=== PATIENT | male | born 1945 | race Caucasian/White ===

== ENCOUNTER 2020-05-10 19:38 | Emergency (ER) | payer MEDICARE ==
[~2020-05-10] VITALS: Ht 182.9 cm; Wt 68.0 kg
[~2020-05-10 19:38] MED LIST: FINA5 PO; Fosamax70 MG PO; OMEP20ER PO
[2020-05-10 20:32] LABS: BASOPHILS ABSOLUTE AUTO 0.03 K/mm3 (0.00-0.23); BASOPHILS PERCENT AUTO 1 % (0-2); EOSINOPHILS PERCENT AUTO 0 % (0-6); Hematocrit 43.5 % (37.0-53.0); Hemoglobin 14.8 g/dL (13.5-17.5); IMMATURE GRAN ABSOLUTE AUTO 0.01 K/mm3 (0.00-0.10); IMMATURE GRAN PERCENT AUTO 0 % (0-1); LYMPHOCYTES ABSOLUTE AUTO 0.73 K/mm3 (0.84-5.20); LYMPHOCYTES PERCENT AUTO 11 % (21-46); MONOCYTES ABSOLUTE AUTO 0.31 K/mm3 (0.16-1.47); MONOCYTES PERCENT AUTO 5 % (4-13); Mean Corpuscular HGB 32.1 pg (26.0-34.0); Mean Corpuscular Volume 94 fL (80-100); Mean Platelet Volume 9.8 fL (9.1-12.4); NEUTROPHILS ABSOLUTE AUTO 5.43 K/mm3 (1.96-9.15); NEUTROPHILS PERCENT AUTO 83 % (41-73); Platelet Count 278 K/mm3 (150-400); RDW Coefficient Variation 12.1 % (11.7-14.2); Red Blood Cell Count 4.61 M/mm3 (4.30-5.90); White Blood Cell Count 6.51 K/mm3 (4.00-11.30)
[2020-05-10 20:46] LABS: International Normalized Ratio 1.01; Prothrombin Time Results 10.8 Sec (9.7-11.5)
[2020-05-10 20:55] LABS: Alanine Aminotransfer (ALT/SGP 24 U/L (12-78); Albumin, Blood 3.9 g/dL (3.4-5.0); Albumin/Globulin Ratio 1.3 (0.8-1.8); Alk Phos 57 U/L (50-136); Anion Gap 5 mmol/L (6-16); Aspartate Aminotrans (AST/SGOT 19 U/L (12-37); Bilirubin, Total 0.4 mg/dL (0.1-1.0); Blood Urea Nitrogen 21 mg/dL (8-24); CO2, Blood 26 mmol/L (21-32); Calcium, Blood 9.7 mg/dL (8.5-10.1); Chloride, Blood 112 mmol/L (98-108); Creatinine, Blood 0.81 mg/dL (0.60-1.20); Glomerular Filtration Rate >60 (60-); Glucose, Blood 135 mg/dL (70-99); Potassium, Blood 4.2 mmol/L (3.5-5.5); Sodium, Blood 143 mmol/L (136-145); Total Protein, Blood 6.9 g/dL (6.4-8.2)
== END 2020-05-10 22:42 | disposition home or self-care (01) ==
LOC: ER 19:38
PROVIDERS: Physician Assistant
DX: G45.4 Transient global amnesia (principal)
CPT/HCPCS: 70450; 80053; 85025; 85610; 93005; 93010; 99285-25

== ENCOUNTER 2020-07-17 14:47 | Emergency (ER) | payer MEDICARE ==
[~2020-07-17] VITALS: Ht 185.4 cm; Wt 72.6 kg
[2020-07-17 15:04] LABS: Source, Urine Clean Catch
[2020-07-17 15:09] LABS: Appearance, Urine Clear (Clear); Bilirubin, Urine Neg (Neg); Blood, Urine 2+ (Neg); Color, Urine Yellow (P-Yellow); Glucose Qualitative, Urine Neg (Neg); Ketones, Urine Neg (Neg); Leukocyte Esterase, Urine 1+ (Neg); Nitrite, Urine Neg (Neg); Protein, Urine Neg (Neg); Specific Gravity, Urine 1.015 (1.003-1.022); Urobilinogen, Urine NORM (Normal)
[2020-07-17 15:18] LABS: Bacteria Rare /hpf; Squamous Epithelial Cells Not Seen /hpf (Few); White Blood Cells, Urine 0-2 /hpf (0-5)
[2020-07-17] MEDS ORDERED: Macrobid 100 M100 MG PO (15:37)
== END 2020-07-17 15:46 | disposition home or self-care (01) ==
LOC: ER 14:47
PROVIDERS: Emergency Medicine
DX: N39.0 Urinary tract infection, site not specified (principal)
CPT/HCPCS: 81001; 87086; 99283

== ENCOUNTER 2020-08-19 11:53 | Emergency (ER) | payer MEDICARE ==
[~2020-08-19] VITALS: Ht 182.9 cm; Wt 72.6 kg
[~2020-08-19 11:53] MED LIST changes: +Macrobid 100 M100 MG PO
[2020-08-19 12:14] LABS: Source, Urine Clean Catch
[2020-08-19 12:20] LABS: Bilirubin, Urine Neg (Neg); Blood, Urine 3+ (Neg); Glucose Qualitative, Urine Neg (Neg); Ketones, Urine Neg (Neg); Leukocyte Esterase, Urine 3+ (Neg); Nitrite, Urine Neg (Neg); Protein, Urine Neg (Neg); Urobilinogen, Urine NORM (Normal); pH, Urine 6.5 (5.0-8.0)
[2020-08-19 12:39] LABS: Appearance, Urine Clear (Clear); Color, Urine Yellow (P-Yellow)
[2020-08-19 12:41] LABS: Bacteria Rare /hpf; Red Blood Cells, Urine 0-2 /hpf (0-2); Squamous Epithelial Cells Not Seen /hpf (Few)
[2020-08-19] MEDS ORDERED: CEPH500 PO (13:36)
== END 2020-08-19 13:50 | disposition home or self-care (01) ==
LOC: ER 11:53
PROVIDERS: Emergency Medicine
DX: N39.0 Urinary tract infection, site not specified (principal)
CPT/HCPCS: 81001; 87086; 99284

== ENCOUNTER → 2020-11-16 | Outpatient (CLI) | payer MEDICARE ==
[~2020-11-16] MED LIST changes: +CEPH500 PO
== END | disposition home or self-care (01) ==
LOC: PLD 15:00 → LAB SHORT 15:00
DX: N30.01 Acute cystitis with hematuria (principal)
CPT/HCPCS: 87086

== ENCOUNTER → 2021-08-05 | Outpatient (CLI) | payer MEDICARE ==
[2021-08-05 16:14] LABS: Source, Urine Clean Catch
[2021-08-05 17:44] LABS: Appearance, Urine Hazy (Clear); Bilirubin, Urine Neg (Neg); Blood, Urine 1+ (Neg); Color, Urine Yellow (P-Yellow); Glucose Qualitative, Urine Neg (Neg); Ketones, Urine 1+ (Neg); Leukocyte Esterase, Urine Neg (Neg); Nitrite, Urine Neg (Neg); Protein, Urine 1+ (Neg); Specific Gravity, Urine 1.025 (1.003-1.022); Urobilinogen, Urine NORM (Normal)
[2021-08-05 18:56] LABS: Bacteria Rare /hpf; Red Blood Cells, Urine 0-2 /hpf (0-2); Squamous Epithelial Cells Rare /hpf (Few); White Blood Cells, Urine 0-2 /hpf (0-5)
== END | disposition home or self-care (01) ==
LOC: LAB 15:57 → LAB SHORT 15:57
PROVIDERS: Nurse Practitioner
DX: N39.0 Urinary tract infection, site not specified (principal)
CPT/HCPCS: 81001; 87086

== ENCOUNTER 2021-08-23 15:39 | Emergency (ER) | payer MEDICARE ==
[~2021-08-23] VITALS: Ht 175.3 cm; Wt 74.8 kg
[2021-08-23 16:41] LABS: Hematocrit 45.1 % (37.0-53.0); Hemoglobin 15.2 g/dL (13.5-17.5); MONOCYTES ABSOLUTE AUTO 0.29 K/mm3 (0.16-1.47); MONOCYTES PERCENT AUTO 4 % (4-13); Mean Corpuscular HGB 32.6 pg (26.0-34.0); Mean Corpuscular HGB Conc 33.7 g/dL (31.5-36.5); Mean Corpuscular Volume 97 fL (80-100); Platelet Count 279 K/mm3 (150-400); RDW Coefficient Variation 12.5 % (11.7-14.2); RDW Standard Deviation 44.2 fL (35.1-46.3); Red Blood Cell Count 4.66 M/mm3 (4.30-5.90); White Blood Cell Count 7.03 K/mm3 (4.00-11.30)
[2021-08-23 17:00] LABS: IMMATURE GRAN ABSOLUTE AUTO 0.01 K/mm3 (0.00-0.10); IMMATURE GRAN PERCENT AUTO 0 % (0-1)
[2021-08-23 17:10] LABS: BASOPHILS ABSOLUTE AUTO 0.03 K/mm3 (0.00-0.23); BASOPHILS PERCENT AUTO 0 % (0-2); EOSINOPHILS PERCENT AUTO 0 % (0-6); LYMPHOCYTES ABSOLUTE AUTO 0.75 K/mm3 (0.84-5.20); LYMPHOCYTES PERCENT AUTO 11 % (21-46); NEUTROPHILS ABSOLUTE AUTO 5.89 K/mm3 (1.96-9.15); NEUTROPHILS PERCENT AUTO 85 % (41-73)
[2021-08-23 17:15] LABS: Alanine Aminotransfer (ALT/SGP 25 U/L (12-78); Albumin, Blood 3.7 g/dL (3.4-5.0); Albumin/Globulin Ratio 1.1 (0.8-1.8); Alk Phos 53 U/L (50-136); Anion Gap 4 mmol/L (6-16); Aspartate Aminotrans (AST/SGOT 15 U/L (12-37); Bilirubin, Total 0.5 mg/dL (0.1-1.0); Blood Urea Nitrogen 13 mg/dL (8-24); Bun/Creatinine Ratio 16.8 (12.0-20.0); CO2, Blood 26 mmol/L (21-32); Chloride, Blood 109 mmol/L (98-108); Creatinine, Blood 0.78 mg/dL (0.60-1.20); Globulin, Blood 3.4 g/dL (2.2-4.0); Glomerular Filtration Rate >60 (60-); Glucose, Blood 108 mg/dL (70-99); Sodium, Blood 139 mmol/L (136-145); Total Protein, Blood 7.1 g/dL (6.4-8.2); Troponin I <0.015 ng/mL (0.000-0.040)
[2021-08-23] MEDS ORDERED: DOXE75C PO (18:19)
[2021-08-23 19:12] LABS: Source, Urine Clean Catch
[2021-08-23 19:45] LABS: Appearance, Urine Cloudy (Clear); Bilirubin, Urine Neg (Neg); Blood, Urine Neg (Neg); Color, Urine Yellow (P-Yellow); Glucose Qualitative, Urine Neg (Neg); Ketones, Urine 2+ (Neg); Leukocyte Esterase, Urine Neg (Neg); Nitrite, Urine Neg (Neg); Protein, Urine 2+ (Neg); Specific Gravity, Urine 1.025 (1.003-1.022); Urobilinogen, Urine NORM (Normal)
[2021-08-23 20:11] LABS: Bacteria Mod /hpf; Calcium Oxalate Crystals Many /hpf; Red Blood Cells, Urine 0-2 /hpf (0-2); Squamous Epithelial Cells Few /hpf (Few); White Blood Cells, Urine 0-2 /hpf (0-5)
[2021-08-23] MEDS ORDERED: ALPR.25 PO (22:01)
[2021-08-23] MEDS ORDERED: CEPH500 PO (22:01)
== END 2021-08-23 22:17 | disposition home or self-care (01) ==
LOC: ER 15:39
PROVIDERS: Emergency Medicine; Physician Assistant
DX: N20.0 Calculus of kidney (principal); R41.82 Altered mental status, unspecified
CPT/HCPCS: 36415; 70450; 74176; 80053; 81001; 84484; 85025; 93005; 93010; 96365; 99285-25; J0696

== ENCOUNTER → 2021-08-24 | Outpatient (CLI) | payer MEDICARE ==
[~2021-08-24] MED LIST changes: +ALPR.25 PO; +DOXE75C PO
[2021-08-24 15:21] LABS: Source, Urine Clean Catch
[2021-08-24 17:37] LABS: Appearance, Urine Hazy (Clear); Bilirubin, Urine Neg (Neg); Color, Urine Yellow (P-Yellow); Glucose Qualitative, Urine Neg (Neg); Ketones, Urine Neg (Neg); Leukocyte Esterase, Urine Neg (Neg); Nitrite, Urine Neg (Neg); Protein, Urine 2+ (Neg)
[2021-08-24 18:08] LABS: Blood, Urine 2+ (Neg); Specific Gravity, Urine 1.025 (1.003-1.022); Urobilinogen, Urine 1+ (Normal)
[2021-08-24 18:27] LABS: White Blood Cells, Urine 0-2 /hpf (0-5)
[2021-08-24 18:29] LABS: Bacteria Mod /hpf; Squamous Epithelial Cells Few /hpf (Few)
[2021-08-24 18:30] LABS: Calcium Oxalate Crystals Many /hpf; Mucus Light (0-Heavy)
== END | disposition home or self-care (01) ==
LOC: LAB SHORT 15:19 → LAB 15:19 → EDSTATUS 08-24 15:10 → LAB FUT 08-24 15:10
PROVIDERS: Nurse Practitioner
DX: N39.0 Urinary tract infection, site not specified (principal)
CPT/HCPCS: 81001; 87086

== ENCOUNTER 2022-03-08 11:32 | Emergency (ER) | payer MEDICARE ==
[~2022-03-08] VITALS: Ht 185.4 cm; Wt 72.6 kg
[~2022-03-08 11:32] MED LIST changes: +LEVE500 PO
[2022-03-08] MEDS ORDERED: LEVE500 PO (13:14)
[2022-03-08] MEDS ORDERED: FLUC200 PO (13:14)
[2022-03-08] MEDS ORDERED: Norco 5-325 Ta1 EACH PO (13:19)
[2022-03-08] MEDS ORDERED: CYCL10 PO (13:19)
[2022-03-08] MEDS ORDERED: IBUP600 PO (13:19)
== END 2022-03-08 13:24 | disposition home or self-care (01) ==
LOC: ER 11:32
DX: M54.32 Sciatica, left side (principal)
CPT/HCPCS: 93971; 99283-25

== ENCOUNTER 2022-03-14 15:16 | Emergency (ER) | payer MEDICARE ==
[~2022-03-14] VITALS: Ht 182.9 cm; Wt 72.6 kg
[~2022-03-14 15:16] MED LIST changes: +CYCL10 PO; +FLUC200 PO; +IBUP600 PO; +Norco 5-325 Ta1 EACH PO
[2022-03-14] MEDS ORDERED: METPRE4DP PO (15:35)
[2022-03-14] MEDS ORDERED: Norco 5-325 Ta1 EACH PO (15:35)
== END 2022-03-14 15:36 | disposition home or self-care (01) ==
LOC: ER 15:16
DX: Z76.0 Encounter for issue of repeat prescription (principal); M54.32 Sciatica, left side; Z79.899 Other long term (current) drug therapy
CPT/HCPCS: 99281

== ENCOUNTER 2022-03-31 07:20 | Emergency (ER) | payer MEDICARE ==
[~2022-03-31] VITALS: Ht 185.4 cm; Wt 66.2 kg
[~2022-03-31 07:20] MED LIST changes: +METPRE4DP PO
[2022-03-31 09:03] LABS: BASOPHILS ABSOLUTE AUTO 0.04 K/mm3 (0.00-0.23); BASOPHILS PERCENT AUTO 1 % (0-2); EOSINOPHILS ABSOLUTE AUTO 0.06 K/mm3 (0.00-0.68); EOSINOPHILS PERCENT AUTO 1 % (0-6); Hematocrit 44.5 % (37.0-53.0); Hemoglobin 15.7 g/dL (13.5-17.5); IMMATURE GRAN ABSOLUTE AUTO 0.01 K/mm3 (0.00-0.10); IMMATURE GRAN PERCENT AUTO 0 % (0-1); LYMPHOCYTES ABSOLUTE AUTO 2.44 K/mm3 (0.84-5.20); LYMPHOCYTES PERCENT AUTO 28 % (21-46); MONOCYTES ABSOLUTE AUTO 0.79 K/mm3 (0.16-1.47); MONOCYTES PERCENT AUTO 9 % (4-13); Mean Corpuscular HGB Conc 35.3 g/dL (31.5-36.5); Mean Corpuscular Volume 94 fL (80-100); Mean Platelet Volume 9.9 fL (9.1-12.4); NEUTROPHILS ABSOLUTE AUTO 5.29 K/mm3 (1.96-9.15); NEUTROPHILS PERCENT AUTO 61 % (41-73); Platelet Count 236 K/mm3 (150-400); RDW Coefficient Variation 11.9 % (11.7-14.2); RDW Standard Deviation 41.4 fL (35.1-46.3); Red Blood Cell Count 4.76 M/mm3 (4.30-5.90); White Blood Cell Count 8.63 K/mm3 (4.00-11.30)
[2022-03-31 09:24] LABS: Bun/Creatinine Ratio 19.6 (12.0-20.0); Calcium, Blood 9.5 mg/dL (8.5-10.1); Creatinine, Blood 0.72 mg/dL (0.60-1.20); Potassium, Blood 4.1 mmol/L (3.5-5.5)
[2022-03-31 15:11] LABS: Source, Urine Clean Catch
[2022-03-31 15:24] LABS: Appearance, Urine Clear (Clear); Bilirubin, Urine Neg (Neg); Blood, Urine 1+ (Neg); Color, Urine Amber (P-Yellow); Glucose Qualitative, Urine Neg (Neg); Ketones, Urine 3+ (Neg); Leukocyte Esterase, Urine Neg (Neg); Nitrite, Urine Neg (Neg); Protein, Urine 1+ (Neg); Specific Gravity, Urine 1.025 (1.003-1.022); Urobilinogen, Urine 1+ (Normal)
[2022-03-31 15:35] LABS: Bacteria Few /hpf; Calcium Oxalate Crystals Mod /hpf; Hyaline Casts 0-2 /lpf (0-2); Mucus Light (0-Heavy); Squamous Epithelial Cells Rare /hpf (Few); White Blood Cells, Urine 0-2 /hpf (0-5)
[2022-03-31] MEDS ORDERED: HYDACE10B PO (18:48)
[2022-03-31] MEDS ORDERED: Norco 5-325 Ta1 EACH PO (19:34)
== END 2022-03-31 15:44 | disposition home or self-care (01) ==
LOC: ER 07:20
PROVIDERS: Emergency Medicine
DX: M51.16 Intervertebral disc disorders with radiculopathy, lumbar region (principal); M47.26 Other spondylosis with radiculopathy, lumbar region; M48.061 Spinal stenosis, lumbar region without neurogenic claudication; F03.90 Unspecified dementia, unspecified severity, without behavioral disturbance, psychotic disturbance, mood disturbance, and anxiety; Z79.899 Other long term (current) drug therapy
CPT/HCPCS: 36415; 72148; 80048; 81001; 85025; A9270; J1100; J2405; J3010

== ENCOUNTER → 2023-01-16 | Outpatient (CLI) | payer MEDICARE ==
[~2023-01-16] MED LIST changes: +HYDACE10B PO
[2023-01-16 18:56] LABS: BASOPHILS ABSOLUTE AUTO 0.05 K/mm3 (0.00-0.23); BASOPHILS PERCENT AUTO 1 % (0-2); EOSINOPHILS ABSOLUTE AUTO 0.03 K/mm3 (0.00-0.68); EOSINOPHILS PERCENT AUTO 1 % (0-6); Hematocrit 43.2 % (37.0-53.0); Hemoglobin 14.8 g/dL (13.5-17.5); IMMATURE GRAN ABSOLUTE AUTO 0.01 K/mm3 (0.00-0.10); IMMATURE GRAN PERCENT AUTO 0 % (0-1); LYMPHOCYTES PERCENT AUTO 34 % (21-46); MONOCYTES ABSOLUTE AUTO 0.46 K/mm3 (0.16-1.47); MONOCYTES PERCENT AUTO 10 % (4-13); Mean Corpuscular HGB Conc 34.3 g/dL (31.5-36.5); Mean Corpuscular Volume 93 fL (80-100); Mean Platelet Volume 10.1 fL (9.1-12.4); NEUTROPHILS ABSOLUTE AUTO 2.55 K/mm3 (1.96-9.15); NEUTROPHILS PERCENT AUTO 54 % (41-73); Platelet Count 305 K/mm3 (150-400); RDW Coefficient Variation 12.6 % (11.7-14.2); RDW Standard Deviation 43.6 fL (35.1-46.3); Red Blood Cell Count 4.63 M/mm3 (4.30-5.90)
[2023-01-16 20:20] LABS: Albumin/Globulin Ratio 1.3 (0.8-1.8); Bilirubin, Total 0.5 mg/dL (0.1-1.0); Bun/Creatinine Ratio 21.5 (12.0-20.0); Calcium, Blood 9.8 mg/dL (8.5-10.1); Creatinine, Blood 0.65 mg/dL (0.60-1.20); Potassium, Blood 4.3 mmol/L (3.5-5.5); Thyroid Stimulating Hormone 2.42 uIU/mL (0.360-4.800)
== END | disposition home or self-care (01) ==
LOC: LAB 12:00 → LAB SHORT 12:00
PROVIDERS: Family Medicine
DX: R41.89 Other symptoms and signs involving cognitive functions and awareness (principal); G30.9 Alzheimer's disease, unspecified; R41.3 Other amnesia; Z79.899 Other long term (current) drug therapy
CPT/HCPCS: 80053; 82607; 82746; 84443; 85025; 85651; 86592

== ENCOUNTER → 2023-02-06 | Outpatient (CLI) | payer MEDICARE ==
[2023-02-06 12:01] LABS: BASOPHILS ABSOLUTE AUTO 0.06 K/mm3 (0.00-0.23); BASOPHILS PERCENT AUTO 1 % (0-2); EOSINOPHILS ABSOLUTE AUTO 0.07 K/mm3 (0.00-0.68); EOSINOPHILS PERCENT AUTO 2 % (0-6); Hematocrit 43.4 % (37.0-53.0); Hemoglobin 14.9 g/dL (13.5-17.5); IMMATURE GRAN ABSOLUTE AUTO 0.01 K/mm3 (0.00-0.10); IMMATURE GRAN PERCENT AUTO 0 % (0-1); LYMPHOCYTES ABSOLUTE AUTO 1.76 K/mm3 (0.84-5.20); LYMPHOCYTES PERCENT AUTO 38 % (21-46); MONOCYTES ABSOLUTE AUTO 0.42 K/mm3 (0.16-1.47); MONOCYTES PERCENT AUTO 9 % (4-13); Mean Corpuscular HGB 32.6 pg (26.0-34.0); Mean Corpuscular HGB Conc 34.3 g/dL (31.5-36.5); Mean Corpuscular Volume 95 fL (80-100); Mean Platelet Volume 9.8 fL (9.1-12.4); NEUTROPHILS ABSOLUTE AUTO 2.31 K/mm3 (1.96-9.15); NEUTROPHILS PERCENT AUTO 50 % (41-73); Platelet Count 276 K/mm3 (150-400); RDW Coefficient Variation 12.7 % (11.7-14.2); RDW Standard Deviation 44.4 fL (35.1-46.3); Red Blood Cell Count 4.57 M/mm3 (4.30-5.90); White Blood Cell Count 4.63 K/mm3 (4.00-11.30)
[2023-02-06 12:25] LABS: Albumin, Blood 3.8 g/dL (3.4-5.0); Albumin/Globulin Ratio 1.4 (0.8-1.8); Bilirubin, Total 0.6 mg/dL (0.1-1.0); Bun/Creatinine Ratio 22.1 (12.0-20.0); Calcium, Blood 9.7 mg/dL (8.5-10.1); Creatinine, Blood 0.72 mg/dL (0.60-1.20); Globulin, Blood 2.7 g/dL (2.2-4.0); Potassium, Blood 3.8 mmol/L (3.5-5.5); Thyroid Stimulating Hormone 3.52 uIU/mL (0.360-4.800); Total Protein, Blood 6.5 g/dL (6.4-8.2)
[2023-02-08 15:07] LABS: A/G RATIO 1.6 (0.7-1.7); ALBUMIN 3.8 g/dL (2.9-4.4); ALPHA-1-GLOBULIN 0.2 g/dL (0.0-0.4); ALPHA-2-GLOBULIN 0.6 g/dL (0.4-1.0); BETA GLOBULIN 0.8 g/dL (0.7-1.3); GAMMA GLOBULIN 0.8 g/dL (0.4-1.8); GLOBULIN, TOTAL 2.4 g/dL (2.2-3.9); M-SPIKE Not Observed g/dL (Not Observed); PROTEIN, TOTAL, SERUM 6.2 g/dL (6.0-8.5)
== END | disposition home or self-care (01) ==
LOC: LAB SHORT 07:39 → LAB FUT 05-04 14:45
PROVIDERS: Psychiatry & Neurology Neurology
DX: C61 Malignant neoplasm of prostate (principal); N20.0 Calculus of kidney; G40.201 Localization-related (focal) (partial) symptomatic epilepsy and epileptic syndromes with complex partial seizures, not intractable, with status epilepticus; G62.9 Polyneuropathy, unspecified; E53.1 Pyridoxine deficiency; E53.8 Deficiency of other specified B group vitamins; R41.3 Other amnesia; R41.89 Other symptoms and signs involving cognitive functions and awareness
CPT/HCPCS: 36415; 80053; 82607; 83036; 84443; 85025; 85651; 86592

== ENCOUNTER 2023-05-12 13:01 | Emergency (ER) | payer MEDICARE ==
[~2023-05-12] VITALS: Ht 185.4 cm; Wt 61.2 kg
[2023-05-12 14:38] LABS: BASOPHILS ABSOLUTE AUTO 0.04 K/mm3 (0.00-0.23); BASOPHILS PERCENT AUTO 1 % (0-2); EOSINOPHILS ABSOLUTE AUTO 0.08 K/mm3 (0.00-0.68); EOSINOPHILS PERCENT AUTO 1 % (0-6); Hematocrit 42.1 % (37.0-53.0); Hemoglobin 14.6 g/dL (13.5-17.5); IMMATURE GRAN ABSOLUTE AUTO 0.01 K/mm3 (0.00-0.10); IMMATURE GRAN PERCENT AUTO 0 % (0-1); LYMPHOCYTES ABSOLUTE AUTO 1.42 K/mm3 (0.84-5.20); LYMPHOCYTES PERCENT AUTO 24 % (21-46); MONOCYTES ABSOLUTE AUTO 0.55 K/mm3 (0.16-1.47); MONOCYTES PERCENT AUTO 9 % (4-13); Mean Corpuscular HGB 32.6 pg (26.0-34.0); Mean Corpuscular HGB Conc 34.7 g/dL (31.5-36.5); Mean Corpuscular Volume 94 fL (80-100); Mean Platelet Volume 10.3 fL (9.1-12.4); NEUTROPHILS ABSOLUTE AUTO 3.74 K/mm3 (1.96-9.15); NEUTROPHILS PERCENT AUTO 64 % (41-73); Platelet Count 254 K/mm3 (150-400); RDW Coefficient Variation 12.4 % (11.7-14.2); RDW Standard Deviation 42.9 fL (35.1-46.3); Red Blood Cell Count 4.48 M/mm3 (4.30-5.90); White Blood Cell Count 5.84 K/mm3 (4.00-11.30)
[2023-05-12 14:53] LABS: Albumin, Blood 3.1 g/dL (3.4-5.0); Albumin/Globulin Ratio 1.1 (0.8-1.8); Bilirubin, Total 0.6 mg/dL (0.1-1.0); Calcium, Blood 9.4 mg/dL (8.5-10.1); Creatinine, Blood 0.69 mg/dL (0.60-1.20); Globulin, Blood 2.8 g/dL (2.2-4.0); Potassium, Blood 4.3 mmol/L (3.5-5.5); Total Protein, Blood 5.9 g/dL (6.4-8.2)
[2023-05-12 15:54] LABS: Source, Urine Clean Catch
[2023-05-12 16:02] LABS: Appearance, Urine Clear (Clear); Bilirubin, Urine Neg (Neg); Blood, Urine Neg (Neg); Color, Urine Yellow (P-Yellow); Glucose Qualitative, Urine Neg (Neg); Ketones, Urine Neg (Neg); Leukocyte Esterase, Urine Neg (Neg); Nitrite, Urine Neg (Neg); Protein, Urine Neg (Neg); Urobilinogen, Urine 2+ (Normal)
[2023-05-12 16:05] LABS: Magnesium, Blood 2.3 mg/dL (1.6-2.4)
[2023-05-12 16:07] LABS: Thyroid Stimulating Hormone 1.76 uIU/mL (0.360-4.800)
[2023-05-12] MEDS ORDERED: METPRE4DP PO (16:52)
[2023-05-12] MEDS ORDERED: HYDR1TAB94 PO (16:52)
[2023-05-12 17:38] VITALS: BP 124/70
== END 2023-05-12 18:20 | disposition home or self-care (01) ==
LOC: ER 13:01
PROVIDERS: Emergency Medicine
DX: M51.16 Intervertebral disc disorders with radiculopathy, lumbar region (principal); R53.1 Weakness; F03.90 Unspecified dementia, unspecified severity, without behavioral disturbance, psychotic disturbance, mood disturbance, and anxiety
CPT/HCPCS: 80053; 81003; 83735; 84443; 85025; J1100; J3010

== ENCOUNTER 2023-08-03 14:39 | Inpatient (IN) | payer MEDICARE ==
[~2023-08-03] VITALS: Ht 185.4 cm; Wt 65.5 kg
[~2023-08-03 14:39] MED LIST changes: +HYDR1TAB94 PO
[2023-08-03] MEDS ORDERED: LATA.005SO BOTHEYES (15:36)
[2023-08-03] MEDS ORDERED: DULO30 PO (15:37)
[2023-08-03] MEDS ORDERED: LEVE500 PO (15:37)
[2023-08-03] MEDS ORDERED: ZOLP10 PO (15:37)
[2023-08-03] MEDS ORDERED: TRAZ100 PO (15:37)
[2023-08-03 15:42] LABS: Albumin, Blood 3.6 g/dL (3.4-5.0); Albumin/Globulin Ratio 1.4 (0.8-1.8); Bilirubin, Total 0.5 mg/dL (0.1-1.0); Bun/Creatinine Ratio 17.7 (12.0-20.0); Calcium, Blood 9.4 mg/dL (8.5-10.1); Creatinine, Blood 0.79 mg/dL (0.60-1.20); Globulin, Blood 2.5 g/dL (2.2-4.0); Potassium, Blood 3.8 mmol/L (3.5-5.5); Total Protein, Blood 6.1 g/dL (6.4-8.2)
[2023-08-03 15:50] LABS: BASOPHILS ABSOLUTE AUTO 0.08 K/mm3 (0.00-0.23); BASOPHILS PERCENT AUTO 1 % (0-2); EOSINOPHILS ABSOLUTE AUTO 0.03 K/mm3 (0.00-0.68); EOSINOPHILS PERCENT AUTO 0 % (0-6); Hematocrit 38.6 % (37.0-53.0); Hemoglobin 13.3 g/dL (13.5-17.5); IMMATURE GRAN ABSOLUTE AUTO 0.02 K/mm3 (0.00-0.10); IMMATURE GRAN PERCENT AUTO 0 % (0-1); LYMPHOCYTES ABSOLUTE AUTO 1.04 K/mm3 (0.84-5.20); LYMPHOCYTES PERCENT AUTO 15 % (21-46); MONOCYTES ABSOLUTE AUTO 0.48 K/mm3 (0.16-1.47); MONOCYTES PERCENT AUTO 7 % (4-13); Mean Corpuscular HGB Conc 34.5 g/dL (31.5-36.5); Mean Corpuscular Volume 96 fL (80-100); Mean Platelet Volume 9.9 fL (9.1-12.4); NEUTROPHILS ABSOLUTE AUTO 5.28 K/mm3 (1.96-9.15); NEUTROPHILS PERCENT AUTO 76 % (41-73); Platelet Count 282 K/mm3 (150-400); RDW Coefficient Variation 12.6 % (11.7-14.2); RDW Standard Deviation 44.5 fL (35.1-46.3); Red Blood Cell Count 4.03 M/mm3 (4.30-5.90); White Blood Cell Count 6.93 K/mm3 (4.00-11.30)
[2023-08-03 18:09] LABS: International Normalized Ratio 1.09; Prothrombin Time Results 11.4 Sec (9.7-11.5)
[2023-08-03 20:02] VITALS: BP 134/86
[2023-08-04] VITALS (10 sets, daily range): BP systolic 101–146; BP diastolic 63–75
--- NOTE | 2023-08-04 04:44 | NUR ---
SHIFT SUMMARY PT IS A&O4, BEDREST BEFORE SURGERY TODAY [address] AMITA RA, VSS, PRN PAIN MEDICATION GIVEN X2 PER MAR FOR LEFT HIP PAIN, PT HAS BEEN NPO SINCE 0000, CONTINUE POC
[2023-08-04 05:09] LABS: BASOPHILS ABSOLUTE AUTO 0.04 K/mm3 (0.00-0.23); BASOPHILS PERCENT AUTO 1 % (0-2); EOSINOPHILS ABSOLUTE AUTO 0.04 K/mm3 (0.00-0.68); EOSINOPHILS PERCENT AUTO 1 % (0-6); Hematocrit 36.3 % (37.0-53.0); Hemoglobin 12.6 g/dL (13.5-17.5); IMMATURE GRAN ABSOLUTE AUTO 0.03 K/mm3 (0.00-0.10); IMMATURE GRAN PERCENT AUTO 0 % (0-1); LYMPHOCYTES ABSOLUTE AUTO 1.13 K/mm3 (0.84-5.20); LYMPHOCYTES PERCENT AUTO 14 % (21-46); MONOCYTES ABSOLUTE AUTO 0.79 K/mm3 (0.16-1.47); MONOCYTES PERCENT AUTO 10 % (4-13); Mean Corpuscular HGB 33.6 pg (26.0-34.0); Mean Corpuscular HGB Conc 34.7 g/dL (31.5-36.5); Mean Corpuscular Volume 97 fL (80-100); Mean Platelet Volume 9.5 fL (9.1-12.4); NEUTROPHILS ABSOLUTE AUTO 6.28 K/mm3 (1.96-9.15); NEUTROPHILS PERCENT AUTO 76 % (41-73); Platelet Count 242 K/mm3 (150-400); RDW Coefficient Variation 12.6 % (11.7-14.2); RDW Standard Deviation 44.5 fL (35.1-46.3); Red Blood Cell Count 3.75 M/mm3 (4.30-5.90); White Blood Cell Count 8.31 K/mm3 (4.00-11.30)
[2023-08-04 05:36] LABS: Bun/Creatinine Ratio 13.4 (12.0-20.0); Creatinine, Blood 0.75 mg/dL (0.60-1.20); Potassium, Blood 4.1 mmol/L (3.5-5.5)
--- NOTE | 2023-08-04 11:40 | NUR ---
PATIENT TO SURGERY AT 0947, PATIENT TO BE TRANSFERED TO ROOM 223 ON SURGICAL FLOOR AFTER SURGERY
--- NOTE | 2023-08-04 14:03 | NUR ---
ARRIVAL TO ROOM 223 FROM PACU PT ARRIVED FROM PACU TO ROOM 223, ALERT AND TALKING TO PACU STAFF DURING TRANSPORT. YOCASTAELL TO L HIP C/D/I, PT DENEIS PAIN AT THIS TIME, ORIENTED TO NEW ROOM, PROVIDED WITH A URINAL PER HIS REQUEST, PRIVACY GIVEN.
[2023-08-05 02:08] VITALS: BP 112/67
[2023-08-05 05:15] LABS: Hematocrit 32.9 % (37.0-53.0); Hemoglobin 11.4 g/dL (13.5-17.5); Mean Corpuscular HGB 33.6 pg (26.0-34.0); Mean Corpuscular HGB Conc 34.7 g/dL (31.5-36.5); Mean Corpuscular Volume 97 fL (80-100); Mean Platelet Volume 9.7 fL (9.1-12.4); Platelet Count 235 K/mm3 (150-400); RDW Coefficient Variation 12.1 % (11.7-14.2); RDW Standard Deviation 43.6 fL (35.1-46.3); Red Blood Cell Count 3.39 M/mm3 (4.30-5.90); White Blood Cell Count 12.55 K/mm3 (4.00-11.30)
[2023-08-05 05:42] LABS: Bun/Creatinine Ratio 18.9 (12.0-20.0); Calcium, Blood 8.9 mg/dL (8.5-10.1); Creatinine, Blood 0.79 mg/dL (0.60-1.20); Potassium, Blood 4.3 mmol/L (3.5-5.5)
--- NOTE | 2023-08-05 06:17 | NUR ---
NO ACUTE EVENTS OVERNIGHT. PT MEDICATED FOR PAIN FOR HIS LEFT HIP PER EMAR. PT RESTED/SLEPT FOR THE MAJORITY OF THE SHIFT. VSS. PT HAS YET TO BE OOB SINCE HIS LEFT TOTAL HIP ARTHROPLASTY.
[2023-08-05 07:24] VITALS: BP 118/62
[2023-08-05 15:19] VITALS: BP 124/56
--- NOTE | 2023-08-05 19:22 | NUR ---
SHIFT SUMMARY POD1 R KAR[place], A/OX4 BUT HE IS FORGETFUL AT TIMES, VSS, TOLERATING PO, PAIN TOLERABLE PER PATIENT, HE WAS UP TO CHAIR FOR BREAKFAST BUT INSISTED ON GOING BACK TO BED AFTERWARDS, ENCOURAGED HIM TO TRY TO BE UP IN THE CHAIR MUCH HE CAN TOLERATE BUT WAS UNWILLING TO DO SO, PT ATTEMTED TO GO FROM CHAIR TO BED ON HIS OWN SO HE WAS THEN ASSISTED BACK IN BED BY STAFF. PT WAS TALKED TO AFTER THIS ABOUT NEEDING TO CALL AND GET STAFF ASSISTANCE FOR HIS SAFETY WE DON'T WANT HIM TO FALL AND HE USED HIS CALL LIGHT AFTER THAT EVENT. NO OTHER EVENTS THIS SHIFT, CALL LIGHT IN REACH.
[2023-08-05 19:52] VITALS: BP 119/73
--- NOTE | 2023-08-06 04:01 | NUR ---
SHIFT SUMMARY PT REPORTS INCREASED PAIN THIS SHIFT. PT TX PER MAR WITH RELIEF. PT IS EAGER TO GO HOME. PT DRESSING IS CLEAN AND INTACT. PT HAS BEEN SLEEPING SOUNDLY THIS SHIFT. CALL LIGHT IN REACH.
[2023-08-06 04:25] VITALS: BP 110/65
[2023-08-06 07:03] VITALS: BP 111/68
--- NOTE | 2023-08-06 17:00 | NUR ---
SHIFT SUMMARY PT A&OX4, VSS/RA, CANDIDA PO - LOW PO INTAKE, VOIDING/URINAL, AMB SBA W/FWW & GB, UP TO CHAIR FOR BREAKFAST/REFUSED TO GET TO CHAIR FOR LUNCH OR DINNER, AMB HALLWAY, PAIN MANAGED WITH ULTRAM AND TYLENOL. POD2 L KAR[place], YOCASTAEL CDI. WILL REPORT TO ONCOMING NOC RN.
[2023-08-06 17:05] VITALS: BP 122/64
[2023-08-06 19:22] VITALS: BP 125/67
--- NOTE | 2023-08-07 05:38 | NUR ---
SHIFT SUMMARY NOC. PT POD 3 FOR LEFT TOTAL HIP. AQUACEL IS C/D/I. PT VOIDING AND TOLERATING PO INTAKE. PT IS HARD OF HEARING AND DOES WELL WITH FACE TO FACE COMMUNICATION. PT MEDICATED FOR SLEEP PER REQUEST X1. PT RESTED WITH EYES CLOSED THROUGHOUT THE NIGHT WITH CALL LIGHT IN REACH.
[2023-08-07 09:41] VITALS: BP 127/77
[2023-08-07] MEDS ORDERED: TRAM50 PO (13:00)
[2023-08-07] MEDS ORDERED: MIRALAX17 GM PO (13:18)
[2023-08-07] MEDS ORDERED: Aspir 8181 MG PO (15:04)
--- NOTE | 2023-08-07 15:30 | NUR ---
DISCHARGE SUMMARY PT A&OX4/[place]-AIDS IN, VSS/RA, CANDIDA PO-LOW PO INTAKE, VOIDING, AMB SBA FWW-REPOSITIONING AND STANDING INDEPENDENTLY, PAIN MANAGED, NO IVs. POD3 L KAR[place], AQUACEL CDI. DC INS PROVIDED. PT REP UNDERSTANDING THOSE INSTRUCTIONS INCLUDING FOLLOW UP WITH DR LEVI 2 WKS, FU WITH PCP 1 WEEK, DVT PROPH ASA 81 MG BID, PAIN(TRAMADAL SCRIPT), DRESSING CHANGES(AQUACEL X2), MIRALAX/STOOL SOFTENER TO PREVENT CONSTIPATION. LEFT FLOOR VIA WC WITH SYSTEMS PROGRAMMER TO GO HOME WITH AND COUSIN WITH ALL PERSONAL POSSESSIONS INCLUDING POLAR KELVIN, DRESSINGS AND SCRIPT.
== END 2023-08-07 15:10 | disposition home or self-care (01) | DRG 522 ==
LOC: ER 14:39 → SURS 19:21 → MEDS 19:21 → SURS 08-04 13:59
PROVIDERS: Emergency Medicine; Internal Medicine; Orthopaedic Surgery; ADMIT Family Medicine
PROC: 0SRB049 Replacement of Left Hip Joint with Ceramic on Polyethylene Synthetic Substitute, Cemented, Open Approach (ICD-10-PCS; principal; 2023-08-04 11:00)
DX: S72.002A Fracture of unspecified part of neck of left femur, initial encounter for closed fracture (principal); W18.30XA Fall on same level, unspecified, initial encounter; G40.909 Epilepsy, unspecified, not intractable, without status epilepticus; D64.9 Anemia, unspecified; F03.90 Unspecified dementia, unspecified severity, without behavioral disturbance, psychotic disturbance, mood disturbance, and anxiety; G89.29 Other chronic pain; M51.36 Other intervertebral disc degeneration, lumbar region; I35.0 Nonrheumatic aortic (valve) stenosis; Z79.899 Other long term (current) drug therapy; Z85.46 Personal history of malignant neoplasm of prostate; Z98.890 Other specified postprocedural states; Z87.891 Personal history of nicotine dependence
CPT/HCPCS: 36415; 71045; 72170; 72193; 73502; 80048; 80053; 85025; 85027; 85610; 85730; 88305; 88311; 93005; 93010; 96374-59; 96375-59; 97110; 97116; 97161; 97530; 99285-25; A9270; C1713; C1776; J0171; J0690; J0735; J1170; J1650; J1885; J2270; J2405; J2704; J2795; J3010; J7120; Q9967

== ENCOUNTER 2025-01-26 13:14 | Emergency (ER) | payer MEDICARE ==
[~2025-01-26] VITALS: Ht 182.9 cm; Wt 74.8 kg
[~2025-01-26 13:14] MED LIST changes: +Aspir 8181 MG PO; +DULO30 PO; +LATA.005SO BOTHEYES; +MIRALAX17 GM PO; +TRAM50 PO; +TRAZ100 PO; +ZOLP10 PO
[2025-01-26 14:27] LABS: BASOPHILS ABSOLUTE AUTO 0.04 K/mm3 (0.00-0.23); BASOPHILS PERCENT AUTO 0 % (0-2); EOSINOPHILS PERCENT AUTO 0 % (0-6); Hematocrit 39.9 % (37.0-53.0); Hemoglobin 13.5 g/dL (13.5-17.5); IMMATURE GRAN ABSOLUTE AUTO 0.07 K/mm3 (0.00-0.10); IMMATURE GRAN PERCENT AUTO 0 % (0-1); LYMPHOCYTES ABSOLUTE AUTO 1.27 K/mm3 (0.84-5.20); LYMPHOCYTES PERCENT AUTO 8 % (21-46); MONOCYTES ABSOLUTE AUTO 1.84 K/mm3 (0.16-1.47); MONOCYTES PERCENT AUTO 11 % (4-13); Mean Corpuscular HGB Conc 33.8 g/dL (31.5-36.5); Mean Corpuscular Volume 95 fL (80-100); Mean Platelet Volume 9.8 fL (9.1-12.4); NEUTROPHILS ABSOLUTE AUTO 13.47 K/mm3 (1.96-9.15); NEUTROPHILS PERCENT AUTO 81 % (41-73); Platelet Count 313 K/mm3 (150-400); RDW Coefficient Variation 12.2 % (11.7-14.2); RDW Standard Deviation 42.4 fL (35.1-46.3); Red Blood Cell Count 4.22 M/mm3 (4.30-5.90); White Blood Cell Count 16.69 K/mm3 (4.00-11.30)
[2025-01-26 14:35] LABS: Source, Urine Clean Catch
[2025-01-26] MEDS ORDERED: Acetaminophen 500 MG Tab PO ONE (14:35)
[2025-01-26] MEDS ORDERED: Polyethylene Glycol 3350 17 gm PO ONE (14:35)
[2025-01-26 14:54] LABS: Albumin, Blood 3.1 g/dL (3.4-5.0); Bilirubin, Total 0.9 mg/dL (0.1-1.0); Bun/Creatinine Ratio 10.9 (12.0-20.0); Calcium, Blood 10.4 mg/dL (8.5-10.1); Creatinine, Blood 2.21 mg/dL (0.60-1.20); Globulin, Blood 3.2 g/dL (2.2-4.0); Potassium, Blood 4.5 mmol/L (3.5-5.5); Total Protein, Blood 6.3 g/dL (6.4-8.2)
[2025-01-26 15:02] LABS: Bilirubin, Urine Neg (Neg); Blood, Urine 3+ (Neg); Color, Urine Yellow (P-Yellow); Glucose Qualitative, Urine Neg (Neg); Ketones, Urine 1+ (Neg); Leukocyte Esterase, Urine 2+ (Neg); Nitrite, Urine Neg (Neg); Protein, Urine 2+ (Neg); Specific Gravity, Urine 1.015 (1.003-1.022); Urobilinogen, Urine NORM (Normal)
[2025-01-26] MEDS ORDERED: NS 1,000 ML IV SCH (15:10)
[2025-01-26 15:48] LABS: Appearance, Urine Hazy (Clear)
[2025-01-26 15:50] LABS: Amorphous Light (0-Heavy); Bacteria Mod /hpf; Mucus Light (0-Heavy); Squamous Epithelial Cells Rare /hpf (Few)
[2025-01-26] MEDS ORDERED: Tamsulosin HCl 0.4 MG Cap PO ONE (17:30)
[2025-01-26] MEDS ORDERED: Cephalexin Monohydrate 500 MG Cap PO ONE (17:30)
[2025-01-26] MEDS ORDERED: Flomax0.4 MG PO (17:31)
[2025-01-26] MEDS ORDERED: CEPH500 PO (17:31)
[2025-01-26 18:00] VITALS: BP 130/85
== END 2025-01-26 19:18 | disposition home or self-care (01) ==
LOC: ER 13:14
PROVIDERS: Emergency Medicine
DX: N13.2 Hydronephrosis with renal and ureteral calculous obstruction (principal); K59.00 Constipation, unspecified; R82.71 Bacteriuria; N40.0 Benign prostatic hyperplasia without lower urinary tract symptoms; F03.90 Unspecified dementia, unspecified severity, without behavioral disturbance, psychotic disturbance, mood disturbance, and anxiety; Z87.442 Personal history of urinary calculi; Z79.82 Long term (current) use of aspirin; Z79.899 Other long term (current) drug therapy
CPT/HCPCS: 74018; 74177; 80053; 81001; 85025; 87086; 96360-59; 99285-25; A9270; J7030; Q9967

== ENCOUNTER 2025-01-28 10:59 | Emergency (ER) | payer MEDICARE ==
[~2025-01-28] VITALS: Ht 182.9 cm; Wt 77.1 kg
[~2025-01-28 10:59] MED LIST changes: +Flomax0.4 MG PO
[2025-01-28 11:55] LABS: BASOPHILS ABSOLUTE AUTO 0.08 K/mm3 (0.00-0.23); BASOPHILS PERCENT AUTO 1 % (0-2); EOSINOPHILS ABSOLUTE AUTO 0.11 K/mm3 (0.00-0.68); EOSINOPHILS PERCENT AUTO 1 % (0-6); Hematocrit 40.5 % (37.0-53.0); Hemoglobin 13.8 g/dL (13.5-17.5); IMMATURE GRAN ABSOLUTE AUTO 0.05 K/mm3 (0.00-0.10); IMMATURE GRAN PERCENT AUTO 1 % (0-1); LYMPHOCYTES ABSOLUTE AUTO 1.45 K/mm3 (0.84-5.20); LYMPHOCYTES PERCENT AUTO 15 % (21-46); MONOCYTES ABSOLUTE AUTO 1.15 K/mm3 (0.16-1.47); MONOCYTES PERCENT AUTO 12 % (4-13); Mean Corpuscular HGB 32.5 pg (26.0-34.0); Mean Corpuscular HGB Conc 34.1 g/dL (31.5-36.5); Mean Corpuscular Volume 96 fL (80-100); NEUTROPHILS ABSOLUTE AUTO 7.17 K/mm3 (1.96-9.15); NEUTROPHILS PERCENT AUTO 72 % (41-73); Platelet Count 289 K/mm3 (150-400); RDW Coefficient Variation 12.3 % (11.7-14.2); RDW Standard Deviation 42.9 fL (35.1-46.3); Red Blood Cell Count 4.24 M/mm3 (4.30-5.90); White Blood Cell Count 10.01 K/mm3 (4.00-11.30)
[2025-01-28 12:33] LABS: Albumin, Blood 2.9 g/dL (3.4-5.0); Albumin/Globulin Ratio 0.8 (0.8-1.8); Bilirubin, Total 0.7 mg/dL (0.1-1.0); Bun/Creatinine Ratio 8.3 (12.0-20.0); Calcium, Blood 9.4 mg/dL (8.5-10.1); Creatinine, Blood 5.05 mg/dL (0.60-1.20); Globulin, Blood 3.5 g/dL (2.2-4.0); Potassium, Blood 4.7 mmol/L (3.5-5.5); Total Protein, Blood 6.4 g/dL (6.4-8.2)
[2025-01-28] MEDS ORDERED: NS 1,000 ML IV SCH (14:55)
[2025-01-28] MEDS ORDERED: Morphine Sulfate 4 MG/1 ML Injection IV ONE (15:30)
[2025-01-28 17:25] LABS: Source, Urine Clean Catch
[2025-01-28 17:37] LABS: Appearance, Urine Clear (Clear); Bilirubin, Urine Neg (Neg); Blood, Urine 2+ (Neg); Color, Urine Yellow (P-Yellow); Glucose Qualitative, Urine Neg (Neg); Ketones, Urine 3+ (Neg); Leukocyte Esterase, Urine 1+ (Neg); Nitrite, Urine Neg (Neg); Protein, Urine 2+ (Neg); Specific Gravity, Urine 1.015 (1.003-1.022); Urobilinogen, Urine NORM (Normal)
[2025-01-28 17:45] VITALS: BP 126/67
[2025-01-28 17:47] LABS: Bacteria Few /hpf; Squamous Epithelial Cells Rare /hpf (Few)
== END 2025-01-28 17:47 | disposition short-term general hospital (02) ==
LOC: ER 10:59
PROVIDERS: Emergency Medicine; Physician Assistant
DX: N13.2 Hydronephrosis with renal and ureteral calculous obstruction (principal); Z79.82 Long term (current) use of aspirin; Z79.899 Other long term (current) drug therapy
CPT/HCPCS: 80053; 81001; 83735; 84295; 84300; 85025; 87086; 96361; 96374; 99285-25; J2270; J7030

== ENCOUNTER → 2025-02-19 | Outpatient (CLI) | payer MEDICARE ==
[2025-02-19 12:09] LABS: Source, Urine Clean Catch
[2025-02-19 13:20] LABS: Appearance, Urine Hazy (Clear); Bilirubin, Urine Neg (Neg); Blood, Urine 1+ (Neg); Color, Urine Amber (P-Yellow); Glucose Qualitative, Urine Neg (Neg); Ketones, Urine Neg (Neg); Leukocyte Esterase, Urine 2+ (Neg); Nitrite, Urine Neg (Neg); Protein, Urine 2+ (Neg); Specific Gravity, Urine 1.015 (1.003-1.022); Urobilinogen, Urine NORM (Normal)
[2025-02-19 13:30] LABS: Bacteria Many /hpf; Red Blood Cells, Urine 25-50 /hpf (0-2); Squamous Epithelial Cells Rare /hpf (Few); Transitional Epithelial Cells Rare /hpf (0-Rare)
== END ==
LOC: LAB 12:07 → LAB SHORT 12:07 → LAB FUT 02-13 11:50
PROVIDERS: Urology
DX: N20.0 Calculus of kidney (principal)
CPT/HCPCS: 81001; 87086